=== PATIENT | female | born 1995 | race Hispanic/Latino ===

== ENCOUNTER → 2019-05-04 09:48 | Outpatient (CLI) | payer OTHER, SELFPAY ==
[2019-05-04 11:21] LABS: Hemoglobin A1C% w Est Avg Glu 5.1 % (4.0-6.0)
[2019-05-04 11:42] LABS: Prolactin 13.6 ng/mL (3.0-18.6)
[2019-05-04 11:44] LABS: Follicle Stimulating Hormone 4.82 mIU/mL
[2019-05-04 11:51] LABS: TSH w/ Reflex to FT4 1.32 uIU/mL (0.47-4.68)
[2019-05-07 13:49] LABS: Dehydroepiandrosterone Sulfate 226 mcg/dL (18-391)
[2019-05-07 19:42] LABS: Testosterone Free 6.9 pg/mL (0.1-6.4); Testosterone Total 38 ng/dL (2-45)
== END ==
PROVIDERS: PCP Physician Assistant; Referring Provider Obstetrics & Gynecology; Visit Provider Obstetrics & Gynecology
DX: N91.5 Oligomenorrhea, unspecified (principal)
CPT/HCPCS: 36415; 82627; 82670; 83001; 83036; 84146; 84402; 84403; 84443

== ENCOUNTER 2021-07-21 22:23 | Emergency (ER) | payer OTHER, SELFPAY ==
[2021-07-21 22:31] VITALS: BP 102/50; PULSE 73; RESP 18; TEMP 36.5; O2SAT 100; BMI 21.9
--- NOTE | 2021-07-21 22:48 | ED.GENADULT ---
HPI - General Adult General Chief complaint: Abdominal Pain Stated complaint: ABD pain nausea, headache Time Seen by Provider: 07/21/21 22:35 Source: patient Mode of arrival: Ambulatory History of Present Illness HPI narrative: 26-year-old female who is here for evaluation of fairly sudden onset right-sided abdominal pain with nausea. She states she was sitting on the couch playing a game with her siblings when the symptoms started. She had some nausea but no vomiting. No urinary symptoms. No diarrhea. By the time of my evaluation patient states that her symptoms have greatly improved. Related Data Home Medications Medication Instructions Recorded Confirmed Ibuprofen See Rx Instructions .ROUTE .COMPLEX 12/01/17 05/24/19 medroxyprogesterone 5 mg tablet 5 mg PO DAILY 05/24/19 05/24/19 Allergies Allergy/AdvReac Type Severity Reaction Status Date / Time No Known Drug Allergies Allergy Verified 07/21/21 22:31 Review of Systems Constitutional Constitutional: Denies fever(s) Cardiovascular Cardiovascular: Reports as per HPI and Reports system reviewed and no additional complaints, except as documented Respiratory Respiratory: Reports as per HPI and Reports system reviewed and no additional complaints, except as documented Gastrointestinal Gastrointestinal: Reports as per HPI and Reports system reviewed and no additional complaints, except as documented Genitourinary Genitourinary: Reports system reviewed and no additional complaints, except as documented Musculoskeletal Musculoskeletal: Reports system reviewed and no additional complaints, except as documented Hematologic/Lymphatic On Anticoagulants: No Patient History Medical History Allergic rhinitis (2011) Chickenpox Eczema (2001) Heavy menstrual period (2009) PCOS (polycystic ovarian syndrome) Shoulder pain (2014) Surgical History (Updated 12/02/17 @ 09:37 by Yeni Oneill LPN) No history of previous surgery Family History (Updated 12/02/17 @ 09:41 by Yeni Oneill LPN) Father No problems noted. Mother Borderline diabetes Sister No problems noted. Grandfather Cancer Grandmother Cancer Grandfather Stroke Grandmother Cancer Social History Smoking Status: Never smoker second hand exposure: Yes (when I was younger. Also, when [place] to [place].) alcohol intake: current ('sometimes on special occasions. ) substance use type: does not use Smoking Status: Never smoker alcohol intake frequency: holidays/special occasions only Substance Use Type: does not use Exam Initial Vital Signs Initial Vital Signs: Vital Signs Temperature 97.7 F 07/21/21 22:31 Pulse Rate 73 07/21/21 22:31 Respiratory Rate 18 07/21/21 22:31 Blood Pressure 102/50 L 07/21/21 22:31 Pulse Oximetry 100 07/21/21 22:31 HENMT Head: normal to inspection and normocephalic Resp Effort & Inspection: normal respiratory effort Auscultation: clear to auscultation bilaterally Cardio Rate: regular rate Rhythm: regular rhythm GI Inspection: normal to inspection Palpation: soft, No firm and No tender Back/Spine/Pelvis Back: No CVA tenderness Skin General: no rashes or lesions noted Extrem General: normal to inspection and capillary refill normal Course Orders Ordered: ED Orders 07/21/21 22:36 EKG-12 Lead Stat 07/21/21 22:50 Complete Blood Count AUTO DIFF Stat Comprehensive Metabolic Panel Stat Lipase Stat Vital Signs Vital signs: Vital Signs - 8 hr 07/21/21 22:31 Temperature 97.7 F Pulse Rate 73 Respiratory Rate 18 Blood Pressure 102/50 L Pulse Oximetry 100 Medical Decision Making Lab Data Lab results reviewed: Yes I reviewed the patient's lab results. Result diagrams: 07/21/21 22:50 07/21/21 22:50 Labs: Lab Results 07/21/21 07/21/21 Range/Units 22:50 22:50 WBC 10.4 (4.5-11.0) X10^3/uL RBC 4.38 (4.0-5.2) X10^6/uL Hgb 12.6 (12.0-16.0) g/dL Hct 37.0 (36-46) % MCV 84.6 (80-100) fL MCH 28.8 (26-34) PG MCHC 34.0 (30-36) % RDW 13.4 (11.6-14.8) % Plt Count 291 (150-400) X10^3/uL Neut % (Auto) 69.9 (50-75) % Lymph % (Auto) 22.7 L (25-40) % Glynn % (Auto) 5.5 (3-14) % Eos % (Auto) 1.6 L (2-4) % Baso % (Auto) 0.3 (0-2) % Neut # (Auto) 7300 H (4123-1886) /uL Lymph # (Auto) 2400 (3377-5903) /uL Glynn # (Auto) 600 (0-900) /uL Eos # (Auto) 200 (0-450) /uL Baso # (Auto) 0 (0-100) /uL Sodium 137 (137-145) mmol/L Potassium 4.0 (3.4-5.1) mmol/L Chloride 105 (98-107) mmol/L Carbon Dioxide 21 L (22-32) mmol/L BUN 22 H (7-17) mg/dL Creatinine 0.63 (0.52-1.04) mg/dL Estimated GFR > 60 (>60) mL/min BUN/Creatinine Ratio 34.9 H (6-22) Glucose 97 (70-100) mg/dL Calcium 8.8 (8.4-10.2) mg/dL Total Bilirubin 0.7 (0.2-1.3) mg/dL AST 81 H (14-36) IU/L ALT 31 (<35) IU/L Alkaline Phosphatase 63 (38-126) U/L Total Protein 7.9 (6.3-8.2) g/dL Albumin 4.4 (3.5-5.0) g/dL Globulin 3.5 (1.7-4.1) g/dL Albumin/Globulin Ratio 1.3 (1.0-2.8) Lipase 90 (23-300) U/L Urine Dip Bedside Urine Glucose Negative Bedside Urine Bilirubin - Negative Bedside Urine Ketone - Negative Urine Specific [place] 1.02 Bedside Urine Occult Blood - Negative Bedside Urine pH 6 Bedside Urine Protein - Negative Bedside Urine Urobilinogen - Negative Bedside Urine Nitrite - Negative Bedside Urine Leukocytes - Negative Esterase Point of care testing: Urine Dip Bedside Urine Glucose Negative Bedside Urine Bilirubin - Negative Bedside Urine Ketone - Negative Urine Specific [place] 1.02 Bedside Urine Occult Blood - Negative Bedside Urine pH 6 Bedside Urine Protein - Negative Bedside Urine Urobilinogen - Negative Bedside Urine Nitrite - Negative Bedside Urine Leukocytes - Negative Esterase ECG Data Attestation: I personally reviewed and interpreted this ECG as follows: Interpretation: Sinus rhythm Ventricular rate of 80 Normal QRS Normal QTC No ST T wave changes MDM Narrative Medical decision making narrative: Patient does have a benign exam. Unremarkable EKG. Symptoms are improving. Urine is unremarkable. Labs unremarkable. Unsure the exact etiology of the patient's symptoms however given her improvement/resolution of her symptoms I do feel that we should hold on any further radiologic studies for now. She agrees with this. She understands the lack of a definitive diagnosis. She was given return precautions. She expressed understanding and agreement. Discharge Plan Departure Patient Disposition: Home Clinical Impression: Abdominal pain Instructions: DI for Abdominal Pain-Adult Activity Restrictions/Additional Instructions: No restrictions on any activities. No restrictions on any diet. Contact your primary doctor for a follow-up. Return to the emergency department for any new or worsening symptoms. Prescriptions: No Action Ibuprofen See Rx Instructions .ROUTE .COMPLEX 0RF Label Comments: 200 -400 mg PO PRN Rx Instructions: 200 -400 mg PO PRN medroxyprogesterone 5 mg tablet 5 mg PO DAILY 0RF Referrals: Selena Shore PA-C [Primary Care Provider] -
[2021-07-21 23:13] LABS: Alanine Aminotransferase 31 IU/L (<35); Albumin 4.4 g/dL (3.5-5.0); Albumin Globulin Ratio 1.3 (1.0-2.8); Alkaline Phosphatase 63 U/L (38-126); Aspartate Aminotransferase 81 IU/L (14-36); BUN Creatinine Ratio 34.9 (6-22); Bilirubin Total 0.7 mg/dL (0.2-1.3); Blood Urea Nitrogen 22 mg/dL (7-17); Calcium 8.8 mg/dL (8.4-10.2); Carbon Dioxide 21 mmol/L (22-32); Chloride 105 mmol/L (98-107); Estimated Glomerular Filt Rate > 60 mL/min (>60); Globulin 3.5 g/dL (1.7-4.1); Glucose 97 mg/dL (70-100); HEMOLYSIS 50 (0-50); Lipase 90 U/L (23-300); Sodium 137 mmol/L (137-145); Total Protein 7.9 g/dL (6.3-8.2)
[2021-07-21 23:20] LABS: Add Manual Diff / Slide Review NO; Basophils Absolute Auto 0 /uL (0-100); Basophils Percent Auto 0.3 % (0-2); Eosinophils Absolute Auto 200 /uL (0-450); Eosinophils Percent Auto 1.6 % (2-4); Hemoglobin 12.6 g/dL (12.0-16.0); Lymphocytes Absolute Auto 2400 /uL (1100-4500); Lymphocytes Percent Auto 22.7 % (25-40); Mean Corpuscular Hemoglobin 28.8 PG (26-34); Mean Corpuscular Volume 84.6 fL (80-100); Monocytes Absolute Auto 600 /uL (0-900); Monocytes Percent Auto 5.5 % (3-14); Neutrophils Absolute Auto 7300 /uL (1500-7000); Neutrophils Percent Auto 69.9 % (50-75); Platelet Count 291 X10^3/uL (150-400); Red Blood Cell Count 4.38 X10^6/uL (4.0-5.2); Red Cell Distribution Width 13.4 % (11.6-14.8); White Blood Cell Count 10.4 X10^3/uL (4.5-11.0)
[2021-07-22 00:17] VITALS: BP 103/57; PULSE 72; RESP 16; O2SAT 100
== END 2021-07-22 00:20 | disposition home or self-care (01) ==
PROVIDERS: Emergency Provider Emergency Medicine; PCP Physician Assistant
DX: R10.9 Unspecified abdominal pain (principal); R11.0 Nausea
CPT/HCPCS: 80053; 81003; 83690; 85025; 93005; 99283

== ENCOUNTER → 2022-01-07 12:29 | Outpatient (CLI) | payer OTHER, SELFPAY | PROVIDERS: Visit Provider Nurse Practitioner Family | DX: J02.9 Acute pharyngitis, unspecified (principal) | CPT/HCPCS: 87070 ==

== ENCOUNTER → 2024-05-07 12:03 | Outpatient (CLI) | payer OTHER, SELFPAY ==
[2024-05-07 14:00] LABS: Influenza A - CEPHEID Flu A NEGATIVE (NEGATIVE); Influenza B - CEPHEID Flu B POSITIVE (NEGATIVE); Respiratory Syncytial Virus Negative (Negative)
[2024-05-07 14:08] LABS: COVID-19 CEPHEID 4-PLEX PCR Negative (Negative)
== END ==
PROVIDERS: Visit Provider Physician Assistant Surgical
DX: R05.1 Acute cough (principal); J02.9 Acute pharyngitis, unspecified
CPT/HCPCS: 0241U; 87070; 87077